=== PATIENT | male | born 1965 | race Caucasian/White ===

== ENCOUNTER 2024-11-20 06:33 | Day surgery (SDC) | payer BC ==
[~2024-11-20] VITALS: Ht 182.9 cm; Wt 130.0 kg
[~2024-11-20 06:33] MED LIST: NS 500 ML IV ONE; OMEP20ER PO; OXAYDO5 M1 PO; TYLENOL325 M1 PO
[2024-11-20] MEDS ORDERED: CLOBETASOL EMOL15 G1 (06:57)
[2024-11-20] MEDS ORDERED: NS 500 ML IV ONE (07:05)
--- NOTE | 2024-11-20 07:15 | NUR ---
[facility] FOR PRE-OP INJECTION AND INJECTION COMPLETED BY DR PENG. INJECTION OF 8 CC OF MIX OF 9 CC LIDOCAINE 1% WITH EPI 1:100,000 WITH 1 CC SODIUM BICARB
[2024-11-20] MEDS ORDERED: propofoL 20 ML IV ONE (08:05)
[2024-11-20] MEDS ORDERED: FentaNYL Citrate 50 MCG/ML 2 ML Injection ONE (08:06)
[2024-11-20 08:23] VITALS: BP 117/93
== END 2024-11-20 08:55 | disposition home or self-care (01) ==
LOC: ORSCSDS 06:33
PROVIDERS: Orthopaedic Surgery
PROC: 01N54ZZ Release Median Nerve, Percutaneous Endoscopic Approach (ICD-10-PCS; principal; 2024-11-20 08:00)
DX: G56.02 Carpal tunnel syndrome, left upper limb (principal); I25.2 Old myocardial infarction; I25.10 Atherosclerotic heart disease of native coronary artery without angina pectoris; K21.9 Gastro-esophageal reflux disease without esophagitis; Z87.891 Personal history of nicotine dependence; E66.9 Obesity, unspecified; Z68.38 Body mass index [BMI] 38.0-38.9, adult; Z79.899 Other long term (current) drug therapy
CPT/HCPCS: J2704; J3010; J7040